=== PATIENT | female | born 1950 | race Caucasian/White ===

== ENCOUNTER → 2024-03-02 | Outpatient (CLI) | payer MEDICARE, OTHER ==
[~2024-03-02] MED LIST: ACTOS30 MG PO; AMLODIPINE BESYL5 MG PO; BACTRIM DS TAB1 EACH PO; CELEBREX 200MG200 MG PO; CRESTOR40 MG PO; CYTOMEL 5MC5 MCG/TAB PO; DIFLUCAN100 M1 PO; DULOXETINE HCL40 MG PO; ELIQUIS2.5 MG PO; JARDIANCE25 MG PO; MACROBID 100 M100 MG PO; PODIAPN CAPSUL1 EACH PO; PYRIDIUM200 M2 PO; SONATA5 MG PO; UNITHROID150 MCG PO; VALSARTAN160 M1 PO
[2024-03-02 15:08] LABS: HEMOGLOBIN 14.4 g/dL (12.5-16.0); MEAN PLATELET VOLUME 10.1 fl (7.4-10.4); RED BLOOD COUNT 4.83 M/mm3 (4.10-5.30); WHITE BLOOD COUNT 6.7 K/mm3 (4.8-10.8)
[2024-03-02 15:16] LABS: ALBUMIN 4.4 g/dL (3.4-4.8)
[2024-03-02 15:17] LABS: CALCIUM 10.1 mg/dL (8.3-10.5)
[2024-03-02 15:18] LABS: TOTAL PROTEIN 7.5 g/dL (6.2-8.1)
[2024-03-02 15:20] LABS: TOTAL BILIRUBIN 0.5 mg/dL (0.2-1.2)
== END ==
LOC: LAB 14:39
PROVIDERS: Family Medicine
DX: M19.012 Primary osteoarthritis, left shoulder (principal); I10 Essential (primary) hypertension; E78.2 Mixed hyperlipidemia; E89.0 Postprocedural hypothyroidism

== ENCOUNTER 2024-03-17 16:32 | Emergency (ER) | payer MEDICARE, OTHER ==
[~2024-03-17] VITALS: Wt 121.2 kg
[2024-03-17 17:31] LABS: URINE APPEARANCE CLEAR (CLEAR); URINE COLOR YELLOW (YELLOW)
[2024-03-17 17:31] LABS: CLUE CELLS NOT OBSERVED (Not Observd)
[2024-03-17 17:36] LABS: PH-URINE 5.5 (5.0 - 8.0); URINE BILIRUBIN NEGATIVE (NEGATIVE); URINE BLOOD NEGATIVE (NEGATIVE); URINE GLUCOSE NEGATIVE (NEGATIVE); URINE KETONE TRACE (NEGATIVE); URINE LEUKOCYTE ESTERASE NEGATIVE (NEGATIVE); URINE MUCUS PRESENT (NOT PRESENT); URINE NITRATE NEGATIVE (NEGATIVE); URINE PROTEIN(semi-quant) NEGATIVE (NEGATIVE)
== END 2024-03-17 18:50 | disposition home or self-care (01) ==
LOC: ED 16:32
PROVIDERS: Nurse Practitioner Family
DX: L24.A0 Irritant contact dermatitis due to friction or contact with body fluids, unspecified (principal)
CPT/HCPCS: Q0111

== ENCOUNTER → 2024-04-30 | Outpatient (CLI) | payer MEDICARE, OTHER ==
[2024-04-30 14:22] LABS: PH-URINE 5.5 (5.0 - 8.0); URINE APPEARANCE CLEAR (CLEAR); URINE BILIRUBIN 1+ (NEGATIVE); URINE COLOR YELLOW (YELLOW); URINE GLUCOSE NEGATIVE (NEGATIVE); URINE KETONE 1+ (NEGATIVE); URINE PROTEIN(semi-quant) 1+ (NEGATIVE)
[2024-04-30 14:23] LABS: URINE BLOOD NEGATIVE (NEGATIVE); URINE LEUKOCYTE ESTERASE NEGATIVE (NEGATIVE); URINE MUCUS PRESENT (NOT PRESENT); URINE NITRATE NEGATIVE (NEGATIVE)
== END ==
LOC: AMSURD 13:33 → LAB 13:33
PROVIDERS: Family Medicine
DX: Z01.812 Encounter for preprocedural laboratory examination (principal)

== ENCOUNTER → 2024-05-14 | Outpatient (CLI) | payer MEDICARE, OTHER ==
[2024-05-14 16:24] LABS: PROTHROMBIN TIME 9.4 SECONDS (9.0-12.0)
== END ==
LOC: LAB 15:37
PROVIDERS: Family Medicine
DX: Z01.818 Encounter for other preprocedural examination (principal)

== ENCOUNTER → 2024-06-24 | Outpatient (CLI) | payer MEDICARE, OTHER ==
[~2024-06-24] MED LIST changes: +CEPHALEXIN500 M1 PO
== END ==
LOC: LAB 13:49
DX: E11.42 Type 2 diabetes mellitus with diabetic polyneuropathy (principal); E78.2 Mixed hyperlipidemia